=== PATIENT | female | born 1945 | race Caucasian/White ===

== ENCOUNTER → 2017-03-20 | Outpatient (CLI) | payer MEDICARE, OTHER ==
--- NOTE | 2017-03-21 11:47 | MM ---
Reason for exam: screening (asymptomatic). Last mammogram was performed 1 year ago. History: Patient is postmenopausal. Physical Findings: A clinical breast exam by your physician is recommended on an annual basis and results should be correlated with mammographic findings. MG 3D Screening Mammo W/Cad Bilateral CC and MLO view(s) were taken. Prior study comparison: March 19, 2016, bilateral MG 3d screening mammo w/cad. March 17, 2015, bilateral MG screening mammo w CAD. There are scattered fibroglandular densities. There is no discrete abnormality. No significant changes when compared with prior studies. ASSESSMENT: Negative, BI-RAD 1 RECOMMENDATION: Routine screening mammogram of both breasts in 1 year.
== END | disposition home or self-care (01) ==
LOC: RADMAMWWP 07:27
PROVIDERS: ATTEND Internal Medicine
DX: Z12.31 Encounter for screening mammogram for malignant neoplasm of breast (principal)
CPT/HCPCS: 77063; G0202

== ENCOUNTER → 2018-03-28 | Outpatient (CLI) | payer MEDICARE, OTHER ==
--- NOTE | 2018-04-07 11:53 | MM ---
Reason for exam: screening (asymptomatic). Last mammogram was performed 1 year ago. History: Patient is postmenopausal. Physical Findings: A clinical breast exam by your physician is recommended on an annual basis and results should be correlated with mammographic findings. MG 3D Screening Mammo W/Cad Bilateral CC and MLO view(s) were taken. Prior study comparison: March 20, 2017, bilateral MG 3d screening mammo w/cad. March 19, 2016, bilateral MG 3d screening mammo w/cad. The breast tissue is heterogeneously dense. This may lower the sensitivity of mammography. Stable benign calcifications. There is no discrete abnormality. No significant changes when compared with prior studies. ASSESSMENT: Benign, BI-RAD 2 RECOMMENDATION: Routine screening mammogram of both breasts in 1 year.
== END ==
LOC: RADMAMWWP 06:55
PROVIDERS: ATTEND Internal Medicine Geriatric Medicine
DX: Z12.31 Encounter for screening mammogram for malignant neoplasm of breast (principal)
CPT/HCPCS: 77063; 77067

== ENCOUNTER → 2018-05-09 | Day surgery (SDC) | payer MEDICARE, OTHER ==
[2018-05-07 14:24] VITALS: BMI 28.8
[~2018-05-09] MED LIST: LIDOCAINE 1% 20 ML VIAL (10MG/ML) FOR IV START INTRADERMA ONE; PROPOFOL 10 MG/ML 20 ML VIAL IV ONE
[2018-05-09 08:45] VITALS: TEMP 98.5
[2018-05-09] MEDS: LACTATED RINGERS 1,000 ML IV SCH ×2 (08:55→09:23)
--- NOTE | 2018-05-09 09:48 | P.PCN ---
Date of Procedure: 05/09/18 Procedure(s) Performed: BRIEF HISTORY: Patient is a 73-year-old pleasant, white female, scheduled for an elective colonoscopy as a part of surveillance of prior history of colon polyps. Her last endoscopy was in [place] 3 years ago and was noted to have colon polyps. PROCEDURE PERFORMED: Colonoscopy with biopsy and snare polypectomy. PREOPERATIVE DIAGNOSIS: Screen for colon cancer. IV sedation per Anesthesia. PROCEDURE: After informed consent was obtained, the patient, was brought into the endoscopy unit. IV sedation was administered by Anesthesia under continuous monitoring. Digital rectal examination was normal. Initially the Olympus CF- 160 flexible video colonoscope was then inserted in the rectum, gradually advanced into the cecum without any difficulty. Careful examination was performed as the scope was gradually being withdrawn. Ileocecal valve and the appendiceal orifice were visualized and appeared normal. Prep was excellent. The base of the cecum there was a 2-3 mm diminutive polyp that was removed by biopsy. Mucosa of the cecum, ascending colon, transverse colon, descending colon appeared normal. In the sigmoid colon there was a 5 mm sessile polyp removed by snare polypectomy and in the proximal rectum there was another 5 mm sessile polyp removed by snare polypectomy. Rest of the, sigmoid colon, and rectum appeared normal. Moderate sigmoid diverticulosis seen. Retroflexion was performed in the rectum and no lesions were seen. The patient tolerated the procedure well. IMPRESSION: 2-3 mm diminutive cecal polyp status post removal by cold biopsy 5 mm sigmoid colon polyp status post polypectomy 5 mm proximal rectal polyp status post polypectomy Moderate sigmoid diverticulosis RECOMMENDATIONS: Findings of this examination were discussed with the patient well as her family. She was advised to follow with the biopsy results. If the biopsy shows adenoma, she can have a repeat colonoscopy in 3-5 years.
[2018-05-09 09:52] VITALS: RESP 16
[2018-05-09 09:57] VITALS: BP 124/75; PULSE 65
== END ==
LOC: ORWHC2ENDO 08:01
PROVIDERS: ATTEND Internal Medicine Gastroenterology
DX: Z12.11 Encounter for screening for malignant neoplasm of colon (principal); D12.0 Benign neoplasm of cecum; D12.5 Benign neoplasm of sigmoid colon; D12.8 Benign neoplasm of rectum; K57.30 Diverticulosis of large intestine without perforation or abscess without bleeding; Z86.010 Personal history of colon polyps; E78.5 Hyperlipidemia, unspecified; E07.9 Disorder of thyroid, unspecified; Z79.890 Hormone replacement therapy; Z79.899 Other long term (current) drug therapy
CPT/HCPCS: 88305; 45380; 45385; J2704

== ENCOUNTER → 2019-01-09 | Outpatient (CLI) | payer MEDICARE, OTHER ==
--- NOTE | 2019-01-09 13:39 | CT ---
EXAMINATION TYPE: CT angio head neck DATE OF EXAM: 01/09/2019 COMPARISON: None HISTORY: Dizziness and visual disturbance CT DLP: 1407.2 mGycm CONTRAST: Performed with IV Contrast, patient injected with 50 mL of Isovue 370. Combination Contrast CTA cervical carotids and [place] CTA cervical carotids with 3-D recons truction Contrast CTA of the cervical carotids was performed 3-D reconstruction imaging obtained at a separate workstation. Right carotid system: Mild plaque is seen of the right common carotid artery. There is mild plaque a lso noted at the carotid bulb and proximal ICA. No significant diameter reduction. ECA is patent. Right vertebral artery appears unremarkable. Left carotid system: Mild plaque is seen of the left common carotid artery. There is mild plaque als o noted at the carotid bulb and proximal ICA. No significant diameter reduction. ECA is patent. Lef t vertebral artery appears unremarkable. IMPRESSION: 1. No significant diameter reduction to account for the patient's symptoms. CTA [place] with 3-D reconstruction Contrast CTA of the [place] was performed 3-D reconstruction imaging obtained at a separate workstation. Vertebrobasilar system as well as intracranial portions of the internal carotid arteries and their ma latricia tributaries are patent. I do not see evidence for sizable aneurysm or vascular malformation. Pl ease note MRI provides greater sensitivity and specificity. Visualized brain appears grossly unremar kable. IMPRESSION: 1. No significant abnormality.
== END | disposition home or self-care (01) ==
LOC: RADCTMAIN 12:01
PROVIDERS: ATTEND Internal Medicine
DX: R42 Dizziness and giddiness (principal); R53.1 Weakness; R51 Headache
CPT/HCPCS: 70496; 70498; Q9967

== ENCOUNTER → 2019-01-16 | Outpatient (CLI) | payer MEDICARE, OTHER ==
[~2019-01-16] MED LIST changes: -LIDOCAINE 1% 20 ML VIAL (10MG/ML) FOR IV START INTRADERMA ONE; -PROPOFOL 10 MG/ML 20 ML VIAL IV ONE; +REGADENOSON 0.4 MG/5 ML SYRINGE IV ONE
--- NOTE | 2019-01-16 10:45 | NM ---
EXAMINATION TYPE: NM stress lexiscan cardiolite DATE OF EXAM: 01/16/2019 COMPARISON: NONE HISTORY: History of hypertension and prior tobacco use as well as hypercholesterolemia presents with chest pain TECHNIQUE: After the intravenous administration of 10.14 mCi Tc 99m Sestamibi - Cardiolite resting S PECT images acquired 45 minutes post injection. The patient received 0.4mg Lexiscan, 25.5 mCi Tc 99m Sestamibi - Stress images obtained [address] injection FINDINGS: Review of stress and rest SPECT images demonstrates no distinct perfusion abnormality. Gated analysi s shows normal wall motion with an estimated left ventricular ejection fraction of 63 %. IMPRESSION: No scintigraphic evidence for reversible ischemia.
--- NOTE | 2019-01-16 15:27 | EST ---
EXERCISE STRESS AGE: 73 SEX: Female HT: 5'3" WT: 165 pounds PROTOCOL: Lexiscan Cardiolite STAGE: DURATION OF EXERCISE: HEART RATE REST: 62 BLOOD PRESSURE REST: 112/60 MAXIMUM HEART RATE ACHIEVED: 91 MAXIMUM BLOOD PRESSURE: 141/56 85% MPHR: 100% MPHR: METS: INDICATIONS: Chest pain. CLINICAL INFORMATION: STRESS DATA: Heart rate 62, pressure 112/60 mmHg. Baseline EKG showed sinus mechanism. She was given 0.4 mg of Lexiscan over 15 seconds per protocol. Maximum heart rate was 91 beats per minute. Maximum pressure was 141/56. Clinically the patient did not have any symptoms of chest pain or discomfort and the EKG did not show any significant ST or T-wave abnormalities. CONCLUSION: 1. Nondiagnostic electrocardiogram stress testing in response to Lexiscan. 2. Please follow up on the Cardiolite portion on separate report. MMODL / IJN: [id number] /
== END | disposition home or self-care (01) ==
LOC: RADNMMAIN 07:44
PROVIDERS: ATTEND Internal Medicine
DX: R07.9 Chest pain, unspecified (principal)
CPT/HCPCS: 93017; 78452; A9500; J2785

== ENCOUNTER → 2019-04-02 | Outpatient (CLI) | payer MEDICARE, OTHER ==
--- NOTE | 2019-04-03 07:54 | MM ---
Reason for exam: screening (asymptomatic). Last mammogram was performed 1 year ago. History: Patient is postmenopausal. Physical Findings: A clinical breast exam by your physician is recommended on an annual basis and results should be correlated with mammographic findings. MG 3D Screening Mammo W/Cad Bilateral CC and MLO view(s) were taken. Prior study comparison: March 28, 2018, bilateral MG 3d screening mammo w/cad. March 20, 2017, bilateral MG 3d screening mammo w/cad. There are scattered fibroglandular densities. Benign appearing calcifications in the left breast. There is chronic nodularity bilaterally. ASSESSMENT: Benign, BI-RAD 2 RECOMMENDATION: Routine screening mammogram of both breasts in 1 year.
== END | disposition home or self-care (01) ==
LOC: RADMAMWWP 07:20
PROVIDERS: ATTEND Internal Medicine Geriatric Medicine
DX: Z12.31 Encounter for screening mammogram for malignant neoplasm of breast (principal)
CPT/HCPCS: 77063; 77067

== ENCOUNTER → 2020-01-26 | Outpatient (CLI) | payer MEDICARE, OTHER ==
--- NOTE | 2020-01-26 15:13 | CT ---
EXAMINATION TYPE: CT brain wo con DATE OF EXAM: 01/26/2020 COMPARISON: None HISTORY: Unspecified injury of head, initial encounter CT DLP: 1121 mGycm Automated exposure control for dose reduction was used. FINDINGS: There is a calcification in the basal ganglia. Ventricular system compatible with the patient's age. Hyperostosis of the calvarium. No acute fracture. There is no midline shift or mass effect. No acute intracranial hemorrhage. IMPRESSION: NO ACUTE INTRACRANIAL PROCESS. CEREBELLAR TONSILS ARE LOW-LYING IN POSITION CORRELATE FOR CHIARI I MA LFORMATION. FURTHER EVALUATION WITH MRI COULD BE CONSIDERED CLINICALLY WARRANTED.
== END | disposition home or self-care (01) ==
LOC: RADCTMAIN 13:14
PROVIDERS: ATTEND Internal Medicine Geriatric Medicine
DX: G93.89 Other specified disorders of brain (principal)
CPT/HCPCS: 70450

== ENCOUNTER → 2020-01-29 | Outpatient (CLI) | payer MEDICARE, OTHER ==
--- NOTE | 2020-01-29 14:23 | US ---
EXAMINATION TYPE: US carotid duplex BILAT DATE OF EXAM: 01/29/2020 COMPARISON: NONE CLINICAL HISTORY: R42 Dizziness, Unspecified injury of head, initial. EXAM MEASUREMENTS: RIGHT: Peak Systolic Velocity (PSV) cm/sec ----- Right CCA: 79.7 ----- Right ICA: 67.9 ----- Right ECA: 88.7 ICA/CCA ratio: 0.9 RIGHT: End Diastole cm/sec ----- Right CCA: 21.2 ----- Right ICA: 19.3 ----- Right ECA: 10.8 LEFT: Peak Systolic Velocity (PSV) cm/sec ----- Left CCA: 81.4 ----- Left ICA: 98.2 ----- Left ECA: 65.0 ICA/CCA ratio: 1.2 LEFT: End Diastole cm/sec ----- Left CCA: 81.4 ----- Left ICA: 98.2 ----- Left ECA: 65.0 VERTEBRALS (direction of flow): Right Vertebral: Antegrade Left Vertebral: Antegrade Rhythm: Normal Mild plaque with no significant velocity elevations. IMPRESSION: 1. Mild plaque no significant hemodynamic stenosis. Criteria for Assigning % of Stenosis / Diameter reduction (Estimation based on the indirect measurements of the internal carotid artery velocities (ICA PSV). 1. Normal (no stenosis)=ICA PSV < 125 cm/s: ratio < 2.0: ICA EDV<40 cm/s. 2. Less than 50% stenosis=ICA PSV < 125 cm/s: ratio < 2.0: ICA EDV<40 cm/s. 3. 50 to 69% stenosis=ICA PSV of 125 to 230 cm/s: ration 2.0 ? 4.0: ICA EDV 40-100 cm/s. 4. Greater than 70% stenosis to near occlusion= ICA PSV > 230 cm/s: ratio > 4.0: ICA EDV > 100 cm/s. 5. Near occlusion= ICA PSV velocities may be low or undetectable: variable ratio and ICA EDV. 6. Total occlusion=unable to detect flow.
== END | disposition home or self-care (01) ==
LOC: RADECHMAIN 13:41
PROVIDERS: ATTEND Internal Medicine Geriatric Medicine
DX: R42 Dizziness and giddiness (principal)
CPT/HCPCS: 93880

== ENCOUNTER → 2020-02-01 | Outpatient (CLI) | payer MEDICARE, OTHER ==
--- NOTE | 2020-02-15 09:43 | HM ---
HOLTER MONITOR REPORT DATE OF SERVICE: February 01, 2020. REFERRING PHYSICIAN: Dr. Bradshaw. The patient was monitored for 24 hours. The baseline rhythm appeared to be sinus mechanism with a minimum heart rate of 46 beats per minute, max heart rate 115 beats per minute, average heart rate of 70 beats per minute. The ventricular ectopic events were not seen during this 48 hours study. Supraventricular ectopic events seen to be less than 1% of the total beats count and presented as an isolated PACs with couplets. The patient did have symptoms of "head feels heavy" and also another episode of "feeling tired and fatigued" and the symptoms were associated with normal sinus mechanism. No evidence of any significant sinus pause or sinus arrest seen. CONCLUSION: 1. This is a 48 hours Holter monitor. 2. Sinus rhythm as a baseline mechanism. 3. No evidence of any ventricular ectopic events seen. 4. Rare supraventricular ectopic events seen. 5. No evidence of any sinus pause or sinus arrest. 6. No evidence of any tachy or bradyarrhythmia seen. 7. No evidence of any atrial fibrillation or SVT seen. 8. The patient reported symptoms of head feels heavy and also feeling tired and fatigued and both of these symptoms were associated with normal sinus mechanism. MMODL / IJN: [id number] /
== END | disposition home or self-care (01) ==
LOC: RADECHMAIN 11:37
PROVIDERS: ATTEND Internal Medicine Geriatric Medicine
DX: I49.3 Ventricular premature depolarization (principal)
CPT/HCPCS: 93225; 93226

== ENCOUNTER → 2020-03-07 | Outpatient (CLI) | payer MEDICARE, OTHER ==
--- NOTE | 2020-03-07 13:04 | MR ---
EXAMINATION TYPE: MR brain wo/w con DATE OF EXAM: 03/07/2020 COMPARISON: CT brain 01/26/2020 HISTORY: Lost Balance and Had a fall and hit back of head. On and off pressure feeling in back of hea d. CT showed possible abnormality. TECHNIQUE: Multiplanar, multisequence images of the brain and brainstem is performed without and with IV contras t, utilizing 7 mL intravenous Gadavist . FINDINGS: Diffusion weighted images demonstrate no evidence of a recent infarct or other diffusion ab normality. There is no extra-axial fluid collection or significant white matter signal abnormality. The ventricular system and cisternal spaces are normal in size and appearance. The brain volume is age appropriate. Midline structures demonstrate normal morphology, minimal inferior cerebellar tonsillar ectopia noted . The craniocervical junction appears within normal limits. Post contrast images demonstrate no abn ormal enhancement. The dural venous sinuses appear patent. The visualized sinuses are clear and the g lobes are intact. Mastoid air cells on the right show inflammatory change. Calcifications present. IMPRESSION: Correlate for mastoiditis.
== END | disposition home or self-care (01) ==
LOC: RADMRIMAIN 10:51
PROVIDERS: ATTEND Nurse Practitioner Gerontology
DX: R93.0 Abnormal findings on diagnostic imaging of skull and head, not elsewhere classified (principal)
CPT/HCPCS: 70553; A9585

== ENCOUNTER → 2020-05-31 | Outpatient (CLI) | payer MEDICARE, OTHER ==
--- NOTE | 2020-06-02 11:26 | MM ---
Reason for exam: screening (asymptomatic). Last mammogram was performed 1 year and 2 months ago. History: Patient is postmenopausal. Physical Findings: A clinical breast exam by your physician is recommended on an annual basis and results should be correlated with mammographic findings. MG 3D Screening Mammo W/Cad Bilateral CC and MLO view(s) were taken. Prior study comparison: April 02, 2019, bilateral MG 3d screening mammo w/cad. March 28, 2018, bilateral MG 3d screening mammo w/cad. There are scattered fibroglandular densities. Finding #1: There is a typically benign circumscribed round mass in the upper outer quadrant of the right breast. Finding #2: There are typically benign calcifications in the left breast. No significant changes in finding since April 02, 2019 and March 28, 2018. ASSESSMENT: Benign, BI-RAD 2 RECOMMENDATION: Routine screening mammogram of both breasts in 1 year.
--- NOTE | 2020-06-02 20:32 | BD ---
EXAMINATION TYPE: Axial Bone Density DATE OF EXAM: 05/31/2020 COMPARISON: NONE CLINICAL HISTORY: Height: 5 FT 2 IN Weight: 160 FRAX RISK QUESTIONS: Alcohol (3 or more units per day): NO Family History (Parent hip fracture): YES Glucocorticoids (More than 3mos): NO (Ex: prednisone, prednisolone, methylprednisolone, dexamethasone, and hydrocortisone). History of Fracture in Adulthood: NO Secondary Osteoporosis: 1. Type 1 Diabetes: NO 2. Hyperthyroidism: NO 3. Menopause before 45: NO 4. Malnutrition: NO 5. Chronic liver disease: NO Rheumatoid Arthritis: NO Current Tobacco Use: NO RISK FACTORS HISTORY OF: Family History of Osteoporosis: YES Active: YES Postmenopausal woman: UNSURE Lost more than 2 inches in height since high school: UNSURE MEDICATIONS: Thyroid Medications: YES Which medication: LEVOTHYROXINE How Long: OVER 30 YEARS Additional Medications: LEVOTHYROXINE, SIMVASTATIN, GABAPENTIN, BLOOD PRESSURE MEDS, Additional History: EXAM MEASUREMENTS: Bone mineral densitometry was performed using the [employer] System. Bone mineral density as measured about the Lumbar spine is: ----- L1-L4(G/cm2): 1.154 T Score Values are as follows: ----- L2: -0.7 ----- L3: -0.1 ----- L4: 0.2 ----- L1-L4: -0.2 BASELINE Bone mineral density about the R hip (g/cm2): 0.901 Bone mineral density about the L hip (g/cm2): 0.943 T Score values are as follows: -----R Neck: -1.0 -----L Neck: -0.7 -----R Total: -0.1 -----L Total: 0.4 BASELINE IMPRESSION: Normal (Values between +1 and -1 indicate normal bone mass). Consider repeating this study in 5 year s or sooner if there is some new clinical indication. NOTE: T-SCORE=SD OF THE YOUNG ADULT MEAN.
== END | disposition home or self-care (01) ==
LOC: RADMAMWWP 14:23
PROVIDERS: ATTEND Internal Medicine Geriatric Medicine
DX: Z12.31 Encounter for screening mammogram for malignant neoplasm of breast (principal); M81.0 Age-related osteoporosis without current pathological fracture
CPT/HCPCS: 77063; 77067; 77080

== ENCOUNTER → 2020-11-14 | Outpatient (CLI) | payer MEDICARE, OTHER ==
--- NOTE | 2020-11-14 13:24 | XR ---
EXAMINATION TYPE: XR cervical spine comp DATE OF EXAM: 11/14/2020 COMPARISON: None HISTORY: 75-year-old female bilateral arm numbness TECHNIQUE: 5 views FINDINGS: No predental space widening or prevertebral soft tissue swelling. Moderate disc/endplate degenerative change at C5-C7 levels. Trace grade 1 anterolisthesis at C4-C5. Facet and uncovertebral joint arthro jovanni mid to lower cervical spine. On the right, changes resulting mild to moderate bony neuroforamin al narrowing at C5-C6. On the left, changes resulting in moderate bony neuroforaminal narrowing C7-T1 and mild at C6-C7. Limited odontoid view shows no gross anomaly. IMPRESSION: Moderate spondylotic changes mid to lower cervical spine. Degenerative grade 1 anterolisthesis C4-C5. Variable mild to moderate bony neural foraminal stenoses as outlined above.
== END | disposition home or self-care (01) ==
LOC: RADXRMAIN 12:54
PROVIDERS: ATTEND Internal Medicine Geriatric Medicine
DX: M48.02 Spinal stenosis, cervical region (principal); M43.12 Spondylolisthesis, cervical region; M99.71 Connective tissue and disc stenosis of intervertebral foramina of cervical region
CPT/HCPCS: 72050

== ENCOUNTER → 2020-12-05 | Outpatient (CLI) | payer MEDICARE, OTHER ==
--- NOTE | 2020-12-05 12:12 | MR ---
EXAMINATION TYPE: MR cervical spine wo/w con DATE OF EXAM: 12/05/2020 COMPARISON: HISTORY: Numbness in arms and weakness in legs TECHNIQUE: Multiplanar, multisequence images of the cervical spine were acquired utilizing 7.5 mL intravenous Ga davist gadolinium contrast. C2-C3: No evidence for degenerative disc disease. No disc bulge/herniation or protrusion. No Canal stenosis. Foramina are patent bilaterally. C3-C4: No evidence for degenerative disc disease. No disc bulge/herniation or protrusion. No Canal stenosis. Foramina are patent bilaterally. C4-C5: Posterior extension endplate disc complex causes mild anterior mass effect thecal sac. There i s some mild left-sided foraminal encroachment due to vertebral joint hypertrophy. C5-C6: Posterior extension endplate disc complex causes mild anterior mass effect thecal sac. There i s bilateral foraminal encroachment due to uncovertebral joint hypertrophy. C6-C7: Posterior extension endplate disc complex causes mild anterior mass effect on the thecal sac. There is left-sided foraminal encroachment due to uncovertebral joint hypertrophy, facet arthropathy change. C7-T1: No evidence for degenerative disc disease. No disc bulge/herniation or protrusion. No Canal stenosis. Foramina are patent bilaterally. Some facet arthropathy changes present greater on the lef t. Cervical segments are intact. There is anterolisthesis grade 1 C7-T1. Cervical spinal cord is of no rmal signal. Craniovertebral junction relationships are within normal limits. There is no significa nt spinal stenosis. There is a spinal curvature, possible thoracic scoliosis. There is multilevel spo ndylosis. There are endplate marrow signal changes, loss of disc height signal is present at C5-6, C6 -7. No abnormal enhancement following contrast administration. IMPRESSION: Multilevel degenerative disc disease, foraminal encroachment.
== END | disposition home or self-care (01) ==
LOC: RADMRIMAIN 09:22
PROVIDERS: ATTEND Internal Medicine Geriatric Medicine
DX: M47.812 Spondylosis without myelopathy or radiculopathy, cervical region (principal)
CPT/HCPCS: 72156; A9585

== ENCOUNTER → 2021-06-14 | Outpatient (CLI) | payer MEDICARE, OTHER ==
--- NOTE | 2021-06-15 11:09 | MM ---
Reason for exam: screening (asymptomatic). Last mammogram was performed 1 year ago. History: Patient is postmenopausal. Physical Findings: A clinical breast exam by your physician is recommended on an annual basis and results should be correlated with mammographic findings. MG 3D Screening Mammo W/Cad Bilateral CC and MLO view(s) were taken. XCCL view(s) were taken of the left breast. Prior study comparison: May 31, 2020, bilateral MG 3d screening mammo w/cad. April 02, 2019, bilateral MG 3d screening mammo w/cad. The breast tissue is heterogeneously dense. This may lower the sensitivity of mammography. There is no discrete abnormality. No significant changes when compared with prior studies. ASSESSMENT: Negative, BI-RAD 1 RECOMMENDATION: Routine screening mammogram of both breasts in 1 year.
== END | disposition home or self-care (01) ==
LOC: RADMAMWWP 07:00
PROVIDERS: ATTEND Internal Medicine Geriatric Medicine
DX: Z12.31 Encounter for screening mammogram for malignant neoplasm of breast (principal); Z78.0 Asymptomatic menopausal state
CPT/HCPCS: 77063; 77067

== ENCOUNTER 2021-08-02 09:09 | Day surgery (SDC) | payer MEDICARE, OTHER ==
[2021-07-31 14:08] VITALS: BMI 29.2
[~2021-08-02 09:09] MED LIST changes: +LACTATED RINGERS 1,000 ML IV SCH; +LIDOCAINE 1% (10MG/ML) FOR IV START INTRADERMA PRN; -REGADENOSON 0.4 MG/5 ML SYRINGE IV ONE
[2021-08-02 09:37] VITALS: PULSE 79; TEMP 98.3
[2021-08-02] MEDS ORDERED: PROPOFOL 10 MG/ML 20 ML VIAL IV ONE (10:11)
--- NOTE | 2021-08-02 10:31 | P.PCN ---
Date of Procedure: 08/02/21 Procedure(s) Performed: BRIEF HISTORY: Patient is a 76-year-old pleasant female scheduled for an elective colonoscopy as a part of value should prior history of colon polyps. Last colonoscopy was 3 years ago. PROCEDURE PERFORMED: Colonoscopy with biopsy. PREOPERATIVE DIAGNOSIS: History of colon polyps. IV sedation per Anesthesia. PROCEDURE: After informed consent was obtained, the patient, was brought into the endoscopy unit. IV sedation was administered by Anesthesia under continuous monitoring. Digital rectal examination was normal. Initially the Olympus CF-160 flexible video colonoscope was then inserted in the rectum, gradually advanced into the cecum without any difficulty. Careful examination was performed as the scope was gradually being withdrawn. Ileocecal valve and the appendiceal orifice were visualized and appeared normal. Prep was excellent. Mucosa of the cecum, ascending colon, transverse colon, appeared normal. In the descending colon there was a 5 mm sessile polyp removed by cold biopsy. The sigmoid colon there was a 3 mm polyp that was removed by cold biopsy. Rest of the descending colon, sigmoid colon, and rectum appeared normal. Moderate sigmoid diverticulosis seen. Retroflexion was performed in the rectum and small internal hemorrhoids were seen. The patient tolerated the procedure well. IMPRESSION: 5 mm descending colon polyp status post cold biopsy 3 mm; polyp status post biopsy Scattered sigmoid diverticulosis Small internal hemorrhoids RECOMMENDATIONS: Findings of this examination were discussed with the patient well as her family. She was advised to follow with the biopsy results. If the biopsy results adenoma she can have a repeat colonoscopy in 5 years.
[2021-08-02 10:39] VITALS: BP 114/62; RESP 12
== END 2021-08-02 11:07 | disposition home or self-care (01) ==
LOC: ORWHC2ENDO 09:09
PROVIDERS: ATTEND Internal Medicine Gastroenterology
DX: Z86.010 Personal history of colon polyps (principal)
CPT/HCPCS: 45380; 88305; J2704

== ENCOUNTER → 2022-04-05 | Outpatient (CLI) | payer MEDICARE, OTHER ==
--- NOTE | 2022-04-05 13:43 | US ---
EXAMINATION TYPE: US transvaginal DATE OF EXAM: 04/05/2022 COMPARISON: NONE CLINICAL HISTORY: R10.2 PELVIC PAIN. Pelvic pain. Hx hysterectomy, patient states she has both ovarie s. . TECHNIQUE: Transabdominal (TA). Transabdominal sonographic images of the pelvis were acquired. Date of LMP: Unknown. EXAM MEASUREMENTS: Right Ovary: Obscured Left Ovary: Not seen with certainty cm 1. Uterus: Surgically absent. 2. Endometrium: Surgically absent. 3. Right Ovary: Obscured. 4. Left Ovary: Not seen with certainty. 5. Bilateral Adnexa: Very limited due to bowel. Area of mixed echogenicity seen in left adnexa, difficult to determine if this is ovarian tissue: 1.6 x 1.2 x 0.6 cm. Anechoic area seen in right adnexa, possible free fluid: 0.6 x 1.1 x 0.7 cm. 6. Posterior cul-de-sac: Appears wnl IMPRESSION: 1. Postoperative changes of hysterectomy. Vaginal cuff is unremarkable. 2. Probable left ovarian tissue. Correlate with surgical history. 3. Small amount of free fluid adjacent to the right adnexa.
== END | disposition home or self-care (01) ==
LOC: RADUSWWP 12:01
PROVIDERS: ATTEND Internal Medicine Geriatric Medicine
DX: R10.2 Pelvic and perineal pain (principal)
CPT/HCPCS: 76830

== ENCOUNTER → 2022-06-15 | Outpatient (CLI) | payer MEDICARE, OTHER ==
--- NOTE | 2022-06-18 20:20 | MM ---
Reason for Exam: Screening (asymptomatic). Last screening mammogram was performed 12 month(s) ago. Patient History: Menarche at age 13. First Full-Term at age 24. Hysterectomy at age 41. Postmenopausal. Risk Values: Lisa 5 year model risk: 1.6%. NCI Lifetime model risk: 3.2%. Prior Study Comparison: 04/02/2019 Bilateral Screening Mammogram, [facility]. 05/31/2020 Bilateral Screening Mammogram, [facility]. 06/14/2021 Bilateral Screening Mammogram, [facility]. Tissue Density: There are scattered fibroglandular densities. Findings: Analyzed By CAD. Chronic nodularity on the right. There is no suspicious group of microcalcifications or new suspicious mass in either breast. Overall Assessment: Benign, BI-RAD 2 Management: Screening Mammogram of both breasts in 1 year. 1. Patient should continue monthly self breast exams. 2. A clinical breast exam by your physician is recommended on an annual basis. 3. This exam should not preclude additional follow-up of suspicious palpable abnormalities. Electronically signed and approved by: Cabrera Landon M.D. Radiologist
== END | disposition home or self-care (01) ==
LOC: RADMAMWWP 07:22
PROVIDERS: ATTEND Internal Medicine Geriatric Medicine
DX: Z12.31 Encounter for screening mammogram for malignant neoplasm of breast (principal); Z78.0 Asymptomatic menopausal state
CPT/HCPCS: 77063; 77067

== ENCOUNTER → 2023-06-18 | Outpatient (CLI) | payer MEDICARE, OTHER ==
--- NOTE | 2023-06-18 13:34 | BD ---
EXAMINATION TYPE: Axial Bone Density DATE OF EXAM: 06/18/2023 CLINICAL HISTORY: 78 years old Female. ICD-10 CODE: M81.0 AGE-RELATED OSTEOPOROSIS W/ Height: 62.2 Weight: 163 FRAX RISK QUESTIONS: Family History (Parent hip fracture): yes RISK FACTORS HISTORY OF: Family History of Osteoporosis: yes Postmenopausal woman: 53 Lost more than 2 inches in height since high school: yes Hyperparathyroidism: no Adrenal Insufficiency: no MEDICATIONS: Thyroid Medications: yes over 40 yrs, synthroid product Additional Medications: statin for cholesterol, gabapentin, bp meds, Additional History: neurological, hypertension, thyroid, renoids in her feet ,psoriasis, arthritis EXAM MEASUREMENTS: Bone mineral densitometry was performed using the [employer] System. Bone mineral density as measured about the Lumbar spine is: ----- L1-L4(G/cm2): 1.064 T Score Values are as follows: ----- L1: -1.4 ----- L2: -1.3 ----- L3: -0.7 ----- L4: -0.7 ----- L1-L4: -1.0 Z Score Values are as follows: ----- L1: 0.0 ----- L2: 0.2 ----- L3: 0.8 ----- L4: 0.8 ----- L1-L4: 0.5 Bone mineral density has: Decreased -7.8% since study of: 05.31.2020 Bone mineral density about the R hip (g/cm2): 0.973 Bone mineral density about the L hip (g/cm2): 1.067 T Score values are as follows: -----R Neck: -1.1 -----L Neck: -0.7 -----R Total: -0.3 -----L Total: 0.5 Z Score values are as follows: -----R Neck: 0.7 -----L Neck: 1.1 -----R Total: 1.4 -----L Total: 2.1 Bone mineral density has: Decreased -0.2% since study of: 05.31.2020 FRAX%s: The graph provided illustrates a 17.0% chance for a major osteoporotic fx and a 7.8% chance f or the hips probability for fx in 10 years time. IMPRESSION: Osteopenia (T Score between -2.5 and -1). There is slightly increased risk of fracture and the patient may be considered for treatment. Re-Screen 2-5 years. NOTE: T-SCORE=SD OF THE YOUNG ADULT MEAN.
--- NOTE | 2023-06-19 07:33 | MM ---
Reason for Exam: Screening (asymptomatic). Last screening mammogram was performed 12 month(s) ago. Patient History: Menarche at age 13. First Full-Term at age 24. Hysterectomy at age 41. Postmenopausal. Risk Values: Lisa 5 year model risk: 1.6%. NCI Lifetime model risk: 3.0%. Prior Study Comparison: 05/31/2020 Bilateral Screening Mammogram, [facility]. 06/14/2021 Bilateral Screening Mammogram, [facility]. 06/15/2022 Bilateral MG 3D screening mammo w/cad, [facility]. Tissue Density: There are scattered fibroglandular densities. Findings: Analyzed By CAD. There is no suspicious group of microcalcifications or new suspicious mass in either breast. Stable chronic nodularity within both breasts. Benign calcifications within the left breast. Overall Assessment: Benign, BI-RAD 2 Management: Screening Mammogram of both breasts in 1 year. A clinical breast exam by your physician is recommended on an annual basis and results should be correlated with mammographic findings. Note on Lisa scores and lifetime risk: 1. A Lisa score greater than 3% is considered moderate risk. If this is the case, consider specialist referral to assess eligibility for a risk reducing agent. If overall lifetime risk for the development of breast cancer is 20% or higher, the patient may qualify for future screening with alternating mammogram and breast MRI. Electronically signed and approved by: Mario Benson D.O.
== END | disposition home or self-care (01) ==
LOC: RADMAMWWP 08:10
PROVIDERS: ATTEND Internal Medicine Geriatric Medicine
DX: Z12.31 Encounter for screening mammogram for malignant neoplasm of breast (principal); M81.0 Age-related osteoporosis without current pathological fracture; M85.89 Other specified disorders of bone density and structure, multiple sites; Z78.0 Asymptomatic menopausal state
CPT/HCPCS: 77063; 77067; 77080

== ENCOUNTER 2023-07-14 02:54 | Emergency (ER) | payer MEDICARE, OTHER ==
[2023-07-14 03:20] VITALS: PULSE 67; RESP 18; TEMP 98.4
--- NOTE | 2023-07-14 03:29 | ED ---
General Adult HPI - General Chief complaint: Shortness of Breath Stated complaint: Sob Time Seen by Provider: 07/14/23 03:05 Source: patient Mode of arrival: ambulatory Limitations: no limitations - History of Present Illness Initial comments: 78-year-old female presents the ER today with a multitude of complaints. Patient reports that earlier in the week she had some pain in her flank and some dysuria she was seen in urgent care and prescribed some Pyridium though she was told she did not have a urinary tract infection. Patient reports that her sy mptoms improved however today they returned and she also felt some epigastric pressure or discomfort. Patient was concerned she might have kidney failure so she came to the ER. Upon arrival patient has pain in the epigastrium which makes it uncomfortable to breathe, no other significant complaints. - Related Data Home Medications Medication Instructions Recorded Confirmed Simvastatin [Zocor] 40 mg PO HS 05/07/18 07/31/21 Gabapentin 300 mg PO DAILY 07/31/21 07/31/21 Levothyroxine Sodium [Synthroid] 75 mcg PO DAILY 07/31/21 07/31/21 amLODIPine BESYLATE [Norvasc] 2.5 mg PO DAILY 07/31/21 07/31/21 Allergies Allergy/AdvReac Type Severity Reaction Status Date / Time No Known Allergies Allergy Verified 07/14/23 02:58 Review of Systems ROS Statement: Those systems with pertinent positive or pertinent negative responses have been documented in the HPI. ROS Other: All systems not noted in ROS Statement are negative. Past Medical History Past Medical History: Hyperlipidemia, Hypertension, Thyroid Disorder Additional Past Medical History / Comment(s): Raynaud's History of Any Multi-Drug Resistant Organisms: None Reported Past Surgical History: Hysterectomy Additional Past Surgical History / Comment(s): COLONOSCOPY Past Anesthesia/Blood Transfusion Reactions: No Reported Reaction Past Psychological History: No Psychological Hx Reported Smoking Status: Former smoker Past Alcohol Use History: None Reported Past Drug Use History: None Reported - Past Family History Mother Family Medical History: Cancer Additional Family Medical History / Comment(s): Skin Father Additional Family Medical History / Comment(s): Stroke General Exam Limitations: no limitations General appearance: alert, in no apparent distress Head exam: Present: atraumatic Eye exam: Present: normal appearance ENT exam: Present: normal exam Neck exam: Present: normal inspection Respiratory exam: Present: normal lung sounds bilaterally. Absent: respiratory distress Cardiovascular Exam: Present: regular rate, normal rhythm GI/Abdominal exam: Present: soft, tenderness. Absent: distended, guarding, rebound Rectal exam: Present: deferred Extremities exam: Present: normal inspection Back exam: Present: normal inspection Neurological exam: Present: alert, oriented X3 Psychiatric exam: Present: normal affect, normal mood Skin exam: Present: warm, dry Course Vital Signs 07/14/23 07/14/23 07/14/23 02:58 04:31 05:00 Temperature 98.4 F Pulse Rate 67 Respiratory 18 18 Rate Blood Pressure 146/85 128/67 O2 Sat by Pulse 98 95 96 Oximetry 07/14/23 07/14/23 06:00 08:15 Temperature Pulse Rate 67 Respiratory 18 18 Rate Blood Pressure 124/74 126/80 O2 Sat by Pulse 94 L 96 Oximetry EKG Findings - EKG Comments: EKG Findings:: EKG interpreted by me, EKG obtained at 3:06 AM, rate is 60 rhythm is sinus with leftward axis, normal intervals [place] 205 QRS 80 QTc [address] elevations or depressions no evidence of acute ischemia or infarction. Medical Decision Making - Medical Decision Making Was pt. sent in by a medical professional or institution (, PA, [employer]IRS[employer]ER, urgent care, hospital, or snf...) When possible be specific @ -No Did you speak to anyone other than the patient for history (EMS, parent, family, police, friend...)? What history was obtained from this source @ - Did you review nursing and triage notes (agree or disagree)? Why? @ -I reviewed and agree with nursing and triage notes Were old charts reviewed (outside hosp., previous admission, EMS record, old EKG, old radiological studies, urgent care reports/EKG's, snf records)? Report findings @ -Previous labs ordered Differential Diagnosis (chest pain, altered mental status, abdominal pain women, abdominal pain men, vaginal bleeding, weakness, fever, dyspnea, syncope, headache, dizziness, GI bleed, back pain, seizure, CVA, palpatations, mental health)? @ -Differential Dyspnea: Coronary syndrome, arrhythmia, tamponade, asthma, COPD, pulmonary embolism, pneumonia, pneumothorax, pulmonary effusion, anaphylaxis, diabetic ketoacidosis, flailed chest, pulmonary contusion, diaphragmatic rupture, anemia, neuromuscular, this is not meant to be an all-inclusive list. EKG interpreted by me (3pts min.). @ -As above X-rays interpreted by me (1pt min.). @ -No acute process CT interpreted by me (1pt min.). @ -No free air, no masses, no hydronephrosis U/S interpreted by me (1pt. min.). @ -None done What testing was considered but not performed or refused? (CT, X-rays, U/S, labs)? Why? @ -None What meds were considered but not given or refused? Why? @ -None Did you discuss the management of the patient with other professionals (professionals i.e. DrMohinder, PA, [employer]ER, lab, RT, psych nurse, geriatric social worker, director business development, teacher, traffic division commanding officer, director case)? Give summary @ -No Was smoking cessation discussed for >3mins.? @ -No Was critical care preformed (if so, how long)? @ -No Were there social determinants of health that impacted care today? How? ( Homelessness, low income, unemployed, alcoholism, drug addiction, transportation, low edu. Level, literacy, decrease access to med. care, fci, rehab)? @ -No Was there de-escalation of care discussed even if they declined (Discuss DNR or withdrawal of care, Hospice)? DNR status @ -No What co-morbidities impacted this encounter? (DM, HTN, Smoking, COPD, CAD, Cancer, CVA, ARF, Chemo, Hep., AIDS, mental health diagnosis, sleep apnea, morbid obesity)? @ -None Was patient admitted / discharged? Hospital course, mention meds given and route, prescriptions, significant lab abnormalities, going to OR and other pertinent info. @ -Discharge The patient was seen and evaluated. History is obtained from patient. Patient with very vague complaints, apparently having some dysuria throughout the week some Pyridium had temporary improvement and now had some dysuria again this morning. Some flank pain. The patient reports that upon experiencing any symptoms again she began having some shortness of breath feeling very worried. She had some discomfort in her epigastrium. Upon arrival she is well-appearing hemodynamically stable. Initial labs and chest x-ray were unremarkable, patient very anxious about possibility of something acute in her abdomen therefore computed tomography scan was obtained results with no acute findings. Results were discussed with patient. Patient specifically asked if there was any evidence of cancer, and she was assured that there is no obvious masses or signs of cancer patient began smiling reported feeling much better and states she like to be discharged home. Undiagnosed new problem with uncertain prognosis? @ -No Drug Therapy requiring intensive monitoring for toxicity (Heparin, Nitro, Insulin, Cardizem)? @ -No Were any procedures done? @ -No Diagnosis/symptom? @ -Dysuria Acute, or Chronic, or Acute on Chronic? @ -default Uncomplicated (without systemic symptoms) or Complicated (systemic symptoms)? @ -default Side effects of treatment? @ -No Exacerbation, Progression, or Severe Exacerbation? @ -No Poses a threat to life or bodily function? How? (Chest pain, [place], [place], pneumonia, PE, COPD, DKA, ARF, appy, cholecystitis, CVA, Diverticulitis, Homicidal, Suicidal, threat to staff... and all critical care pts) @ -No - Lab Data Result diagrams: 07/14/23 03:55 07/14/23 03:55 Lab Results 07/14/23 07/14/23 07/14/23 Range/Units 03:55 03:55 03:55 WBC 4.5 (3.8-10.6) k/uL RBC 4.18 (3.80-5.40) m/uL Hgb 14.2 (11.4-16.0) gm/dL Hct 39.8 (34.0-46.0) % MCV 95.1 (80.0-100.0) fL MCH 34.0 (25.0-35.0) pg MCHC 35.7 (31.0-37.0) g/dL RDW 12.1 (11.5-15.5) % Plt Count 226 (150-450) k/uL MPV 8.1 Neutrophils % 55 % Lymphocytes % 32 % Monocytes % 6 % Eosinophils % 4 % Basophils % 1 % Neutrophils # 2.4 (1.3-7.7) k/uL Lymphocytes # 1.4 (1.0-4.8) k/uL Monocytes # 0.3 (0-1.0) k/uL Eosinophils # 0.2 (0-0.7) k/uL Basophils # 0.0 (0-0.2) k/uL PT 10.0 (10.0-12.5) sec INR 0.9 (<1.2) APTT 34.0 H (22.0-30.0) sec Sodium 137 (137-145) mmol/L Potassium 4.3 (3.5-5.1) mmol/L Chloride 108 H (98-107) mmol/L Carbon Dioxide 20 L (22-30) mmol/L Anion Gap 9 mmol/L BUN 16 (7-17) mg/dL Creatinine 0.78 (0.52-1.04) mg/dL Est GFR (CKD-EPI)AfAm 85 (>60 ml/min/1.73 sqM) Est GFR (CKD-EPI)NonAf 74 (>60 ml/min/1.73 sqM) Glucose 119 H (74-99) mg/dL Calcium 9.5 (8.4-10.2) mg/dL Magnesium 2.1 (1.6-2.3) mg/dL Total Bilirubin 0.8 (0.2-1.3) mg/dL AST 24 (14-36) U/L ALT 23 (4-34) U/L Alkaline Phosphatase 74 (38-126) U/L Troponin I (0.000-0.034) ng/mL Total Protein 6.1 L (6.3-8.2) g/dL Albumin 3.7 (3.5-5.0) g/dL Lipase 200 (23-300) U/L Urine Color Urine Appearance (Clear) Urine pH (5.0-8.0) Ur Specific Douglas (1.001-1.035) Urine Protein (Negative) Urine Glucose (UA) (Negative) Urine Ketones (Negative) Urine Blood (Negative) Urine Nitrite (Negative) Urine Bilirubin (Negative) Urine Urobilinogen (<2.0) mg/dL Ur Leukocyte Esterase (Negative) Urine RBC (0-5) /hpf Urine WBC (0-5) /hpf Ur Squamous Epith Cells (0-4) /hpf Urine Bacteria (None) /hpf 07/14/23 07/14/23 Range/Units 03:55 03:55 WBC (3.8-10.6) k/uL RBC (3.80-5.40) m/uL Hgb (11.4-16.0) gm/dL Hct (34.0-46.0) % MCV (80.0-100.0) fL MCH (25.0-35.0) pg MCHC (31.0-37.0) g/dL RDW (11.5-15.5) % Plt Count (150-450) k/uL MPV Neutrophils % % Lymphocytes % % Monocytes % % Eosinophils % % Basophils % % Neutrophils # (1.3-7.7) k/uL Lymphocytes # (1.0-4.8) k/uL Monocytes # (0-1.0) k/uL Eosinophils # (0-0.7) k/uL Basophils # (0-0.2) k/uL PT (10.0-12.5) sec INR (<1.2) APTT (22.0-30.0) sec Sodium (137-145) mmol/L Potassium (3.5-5.1) mmol/L Chloride (98-107) mmol/L Carbon Dioxide (22-30) mmol/L Anion Gap mmol/L BUN (7-17) mg/dL Creatinine (0.52-1.04) mg/dL Est GFR (CKD-EPI)AfAm (>60 ml/min/1.73 sqM) Est GFR (CKD-EPI)NonAf (>60 ml/min/1.73 sqM) Glucose (74-99) mg/dL Calcium (8.4-10.2) mg/dL Magnesium (1.6-2.3) mg/dL Total Bilirubin (0.2-1.3) mg/dL AST (14-36) U/L ALT (4-34) U/L Alkaline Phosphatase (38-126) U/L Troponin I <0.012 (0.000-0.034) ng/mL Total Protein (6.3-8.2) g/dL Albumin (3.5-5.0) g/dL Lipase (23-300) U/L Urine Color Yellow Urine Appearance Clear (Clear) Urine pH 6.0 (5.0-8.0) Ur Specific Douglas 1.005 (1.001-1.035) Urine Protein Negative (Negative) Urine Glucose (UA) Negative (Negative) Urine Ketones Negative (Negative) Urine Blood Negative (Negative) Urine Nitrite Negative (Negative) Urine Bilirubin Negative (Negative) Urine Urobilinogen <2.0 (<2.0) mg/dL Ur Leukocyte Esterase Trace H (Negative) Urine RBC <1 (0-5) /hpf Urine WBC 1 (0-5) /hpf Ur Squamous Epith Cells <1 (0-4) /hpf Urine Bacteria Rare H (None) /hpf Disposition Clinical Impression: Flank pain Disposition: HOME SELF-CARE Condition: Stable Is patient prescribed a controlled substance at d/c from ED?: No Referrals: Carlos Bradshaw MD [Primary Care Provider] - 1-2 days
[2023-07-14] MEDS ORDERED: SODIUM CHLORIDE 0.9% 500 ML 500 ML IV STA (03:52)
[2023-07-14 04:18] LABS: Basophils % (A) 1 %; Eosinophils # (A) 0.2 k/uL (0-0.7); Eosinophils % (A) 4 %; HCT 39.8 % (34.0-46.0); HGB 14.2 gm/dL (11.4-16.0); Lymphocytes # (A) 1.4 k/uL (1.0-4.8); Lymphocytes % (A) 32 %; MCHC 35.7 g/dL (31.0-37.0); MCV 95.1 fL (80.0-100.0); Mean Platelet Volume 8.1; Monocytes # (A) 0.3 k/uL (0-1.0); Monocytes % (A) 6 %; Neutrophils # (A) 2.4 k/uL (1.3-7.7); Neutrophils % (A) 55 %; Platelet Count 226 k/uL (150-450); RBC 4.18 m/uL (3.80-5.40); RDW 12.1 % (11.5-15.5); WBC 4.5 k/uL (3.8-10.6)
[2023-07-14 04:22] LABS: Appearance,Urine Clear (Clear); Bacteria,Urine Rare /hpf; Bilirubin,Urine Negative (Negative); Blood,Urine Negative (Negative); Color,Urine Yellow; Glucose,Urine (UA) Negative (Negative); Ketones,Urine Negative (Negative); Leukocyte Esterase,Urine Trace (Negative); Nitrite,Urine Negative (Negative); Protein,Urine Negative (Negative); RBC,Urine <1 /hpf (0-5); Specific Gravity,Urine 1.005 (1.001-1.035); Squamous Epithelial Cell,Urine <1 /hpf (0-4); Urobilinogen,Urine <2.0 mg/dL (<2.0); WBC,Urine 1 /hpf (0-5)
[2023-07-14 04:27] LABS: ALT 23 U/L (4-34); AST 24 U/L (14-36); African American GFR (CKD) 85 (>60 ml/min/1.73 sqM); Albumin 3.7 g/dL (3.5-5.0); Alkaline Phosphatase 74 U/L (38-126); Anion Gap 9 mmol/L; Blood Urea Nitrogen 16 mg/dL (7-17); Calcium 9.5 mg/dL (8.4-10.2); Carbon Dioxide 20 mmol/L (22-30); Chloride 108 mmol/L (98-107); Glucose 119 mg/dL (74-99); Lipase 200 U/L (23-300); Magnesium 2.1 mg/dL (1.6-2.3); Non-African American GFR(CKD) 74 (>60 ml/min/1.73 sqM); Potassium 4.3 mmol/L (3.5-5.1); Sodium 137 mmol/L (137-145); Total Bilirubin 0.8 mg/dL (0.2-1.3); Total Protein 6.1 g/dL (6.3-8.2)
[2023-07-14 04:29] LABS: INR 0.9 (<1.2)
--- NOTE | 2023-07-14 05:37 | XR ---
EXAM: XR Chest, 2 Views CLINICAL HISTORY: ITS.REASON XR Reason: Chest Pain TECHNIQUE: Frontal and lateral views of the chest. COMPARISON: No relevant prior studies available. FINDINGS: Lungs: No consolidation. Pleural space: Unremarkable. No pneumothorax. Heart: Mild cardiomegaly. Mediastinum: Normal mediastinal contour. Bones/joints: No acute fracture. IMPRESSION: No radiographic evidence of acute cardiopulmonary process.
--- NOTE | 2023-07-14 07:36 | CT ---
EXAM: CT Abdomen and Pelvis With Intravenous Contrast CLINICAL HISTORY: ITS.REASON CT Reason: epigastric pain TECHNIQUE: Axial computed tomography images of the abdomen and pelvis with intravenous contrast. CTDI is 20.37 mGy and DLP is 972.4 mGy-cm. This CT exam was performed using one or more of the following dose reduction techniques: automated exposure control, adjustment of the mA and/or kV according to patient size, and/or use of iterative reconstruction technique. COMPARISON: No relevant prior studies available. FINDINGS: Lung bases: There is some mild bibasilar atelectasis. ABDOMEN: Liver: Low-attenuation liver. Gallbladder and bile ducts: Unremarkable. No calcified stones. No ductal dilation. Pancreas: Unremarkable. No mass. No ductal dilation. Spleen: 1.5 cm low-attenuation lesion in the medial inferior spleen, of doubtful clinical significance. Adrenals: Unremarkable. No mass. Kidneys and ureters: There are some small renal cysts. 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 Subcentimeter focus of increased attenuation upper pole right kidney, too small to characterize. Small nonobstructing renal stones. Stomach and bowel: Colonic diverticulosis. No obstruction. No mucosal thickening. PELVIS: Appendix: No findings to suggest acute appendicitis. Bladder: Unremarkable. No mass. Reproductive: Unremarkable as visualized. ABDOMEN and PELVIS: Intraperitoneal space: Unremarkable. No free air. No significant fluid collection. Bones/joints: No acute fracture. No dislocation. Soft tissues: Unremarkable. Vasculature: Unremarkable. No abdominal aortic aneurysm. Lymph nodes: Unremarkable. No enlarged lymph nodes. IMPRESSION: 1. No acute disease. 2. 1.5 cm nonspecific low-attenuation lesion in the medial inferior spleen, of doubtful clinical significance. 3. There are some small renal cysts. 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 Subcentimeter focus of increased attenuation upper pole right kidney, too small to characterize. 4. Hepatic steatosis. 5. Small nonobstructing renal stones. 6. Colonic diverticulosis.
[2023-07-14 09:02] VITALS: BP 126/80
== END 2023-07-14 09:01 | disposition home or self-care (01) ==
LOC: EC 02:54
DX: R10.13 Epigastric pain (principal); R30.0 Dysuria; I10 Essential (primary) hypertension; E78.5 Hyperlipidemia, unspecified; E07.9 Disorder of thyroid, unspecified; Z79.890 Hormone replacement therapy; Z79.899 Other long term (current) drug therapy; Z87.891 Personal history of nicotine dependence
CPT/HCPCS: 36415; 93005; 80053; 83690; 83735; 84484; 85025; 85610; 85730; 81001; 71046; 74177; 99285; Q9967

== ENCOUNTER → 2024-06-08 | Outpatient (CLI) | payer MEDICARE, OTHER ==
--- NOTE | 2024-06-08 08:27 | US ---
EXAMINATION TYPE: US kidneys/renal and bladder DATE OF EXAM: 06/08/2024 COMPARISON: CT 07/14/2023 CLINICAL INDICATION: Female, 79 years old with history of Z87.442 PERSONAL HX OF KIDNEY STONES; Left flank pain last day, with microscopic hematuria. TECHNIQUE: Grayscale and color Doppler imaging of the bilateral kidneys and urinary bladder: FINDINGS: EXAM MEASUREMENTS: Right Kidney: 10.4 x 5.7 x 4.3 cm Left Kidney: 11.6 x 5.9 x 5.2 cm Post Void Residual Volume: NA mL Right Kidney: Echogenic circumscribed vascular area without shadowing seen in the upper medial pole, most consistent with angiomyolipoma seen on CT = 2.0 x 1.3 x 1.2 cm . No hydronephrosis. Left Kidney: Echogenic foci with minimal shadowing and twinkle artifact - lower pole image 79, upper pole image 81 -consistent with renal calcification. No hydronephrosis. Bladder: WNL Bilateral Jets seen: Yes Normal Post Void Residual: NA No hydronephrosis of either kidney. Echogenic lesion within the upper medial pole of the right kidney consistent with an Alfredo biloma seen on prior CT. Punctate nonobstructive left renal calculus demons trating shadowing and twinkle artifact. Cortical medullary differentiation is maintained bilaterally. The urinary bladder is anechoic with both ureteral jets identified. IMPRESSION: 1. No hydronephrosis. 2. Nonobstructive left renal calculus. 3. Right renal echogenic lesion most consistent with an angiomyolipoma demonstrated on prior CT. [facility], , 06/08/2024 8:25 AM
== END | disposition home or self-care (01) ==
LOC: RADUSWWP 07:55
PROVIDERS: ATTEND Internal Medicine Geriatric Medicine
CPT/HCPCS: 76770

== ENCOUNTER → 2024-06-26 | Outpatient (CLI) | payer MEDICARE, OTHER ==
--- NOTE | 2024-06-29 08:40 | MM ---
Reason for Exam: Screening (asymptomatic). Last mammogram was performed 1 year(s) and 1 month(s) ago. Patient History: Menarche at age 13. First Full-Term at age 24. Hysterectomy at age 41. Postmenopausal. Risk Values: Lisa 5 year model risk: 1.5%. NCI Lifetime model risk: 2.8%. Prior Study Comparison: 06/14/2021 Bilateral Screening Mammogram, [facility]. 06/15/2022 Bilateral MG 3D screening mammo w/cad, [facility]. 06/18/2023 Bilateral MG 3D screening mammo w/cad, [facility]. Tissue Density: There are scattered areas of fibroglandular density. Findings: Analyzed By CAD. Right breast: There is no suspicious group of microcalcifications or new suspicious mass. Left breast: There is no suspicious group of microcalcifications or new suspicious mass. Overall Assessment: Negative, BI-RAD 1 Management: Screening Mammogram of both breasts in [address] [facility] will attempt to contact patient to return for supplemental views and ultrasound if indicated. Patient should continue monthly self-breast exams. A clinical breast exam by your physician is recommended on an annual basis. This exam should not preclude additional follow-up of suspicious palpable abnormalities. Note on Lisa scores and lifetime risk: 1. A Lisa score greater than 3% is considered moderate risk. If this is the case, consider specialist referral to assess eligibility for a risk reducing agent. 2. If overall lifetime risk for the development of breast cancer is 20% or higher, the patient may qualify for future screening with alternating mammogram and breast MRI. [facility], , 06/29/2024 8:38 AM. Electronically signed and approved by: Jamli Naik DO
== END | disposition home or self-care (01) ==
LOC: RADMAMWWP 10:25
PROVIDERS: ATTEND Internal Medicine Geriatric Medicine
DX: Z12.31 Encounter for screening mammogram for malignant neoplasm of breast (principal); R92.323 Mammographic fibroglandular density, bilateral breasts; Z78.0 Asymptomatic menopausal state
CPT/HCPCS: 77063; 77067

== ENCOUNTER → 2025-02-16 | Outpatient (CLI) | payer MEDICARE, OTHER ==
--- NOTE | 2025-02-16 16:40 | US ---
EXAMINATION TYPE: US transvaginal DATE OF EXAM: 02/16/2025 COMPARISON: NONE CLINICAL INDICATION: Female, 79 years old with history of R102 PELVIC PAIN; Pain and bloating. Partia l hysterectomy TECHNIQUE: Transvaginal (TV). Doppler imaging: Not performed. FINDINGS: EXAM MEASUREMENTS: Uterus: Surgically absent Endometrial Stripe: Surgically absent Left Ovary: 1.4 x 2.0 x 1.0 cm 1. Uterus: Surgically absent 2. Endometrium: Surgically absent 3. Right Ovary: Obscured by overlying bowel gas 4. Left Ovary: wnl 5. Bilateral Adnexa: wnl 6. Posterior cul-de-sac: wnl IMPRESSION: as above O-RADS 2021 [email or web address] [facility], , 02/16/2025 4:38 PM
--- NOTE | 2025-02-16 20:20 | US ---
EXAMINATION TYPE: US kidneys/renal and bladder DATE OF EXAM: 02/16/2025 COMPARISON: NONE CLINICAL INDICATION: Female, 79 years old with history of N20.0 KIDNEY STONE; Pain, bloating hx of st one TECHNIQUE: Grayscale imaging of the bilateral kidneys and urinary bladder: FINDINGS: EXAM MEASUREMENTS: Right Kidney: 8.7 x 4.7 x 4.4 cm Left Kidney: 9.5 x 5.2 x 4.8 cm Right Kidney: No hydronephrosis or masses seen Left Kidney: Lobulated no hydronephrosis seen. Bladder: Anechoic Bilateral Jets seen: yes There is no evidence for hydronephrosis at this point in time. No nephrolithiasis is seen. No heather s are identified. The urinary bladder is anechoic. IMPRESSION: No discrete abnormality appreciated. [facility], , 02/16/2025 8:18 PM
== END | disposition home or self-care (01) ==
LOC: RADUSWWP 15:13
PROVIDERS: ATTEND Internal Medicine Geriatric Medicine
DX: N20.0 Calculus of kidney (principal)
CPT/HCPCS: 76770; 76830

== ENCOUNTER → 2025-03-12 | Outpatient (CLI) | payer MEDICARE, OTHER ==
--- NOTE | 2025-03-12 11:52 | CT ---
EXAMINATION TYPE: CT abdomen pelvis w con DATE OF EXAM: 03/12/2025 11:31 AM COMPARISON: 07/14/2023 CLINICAL INDICATION: Female, 79 years old with history of R10.0 ACUTE ABDOMEN, pain TECHNIQUE: Axial images were obtained from above the diaphragm to the pubic rami in the axial plane a t 5 mm thick sections. Reconstructed images are reviewed on the computer in the coronal plane. CONTRAST: 100ml mL of Isovue 300. Study performed with Oral Contrast DLP: 1062 mGycm, Automated exposure control for dose reduction was used. FINDINGS: Limited CT sections are obtained the lung bases. Some streak opacity in the posterior medial right l fabio base may be some atelectasis.. CT ABDOMEN: Liver: There is mild fatty infiltration of the liver. No discrete masses Spleen: Couple small cysts may be within the medial spleen. Pancreas: Normal Adrenal glands: The adrenal glands are normal. Gallbladder: Normal Kidneys: No masses are evident. No hydronephrosis is present. There are a few scattered small calcifi cations within the left kidney without evidence of obstruction. Small cortical renal cysts present. Delayed images were obtained through the kidneys, which remain unremarkable. Aorta: Vascular calcification is within the aorta. Inferior vena cava: Normal. CT PELVIS: Loops of bowel within the abdomen and pelvis are normal. Multiple scattered diverticuli are through t he sigmoid colon. No acute diverticulitis is evident. There are loops of bowel which are incomplet hipolito distended or lack oral contrast limiting their evaluation. Appendix: Normal as visualized. Urinary bladder: Normal. Genitourinary structures: Osseous structures: No suspicious lytic or sclerotic lesions evident. IMPRESSION: 1. Diverticulosis without acute diverticulitis. 2. A few small left renal stones without hydronephrosis. 3. Mild fatty infiltration of liver [facility], , 03/12/2025 11:49 AM
== END | disposition home or self-care (01) ==
LOC: RADCTMAIN 09:35
PROVIDERS: ATTEND Internal Medicine Geriatric Medicine
DX: N20.0 Calculus of kidney (principal); K76.0 Fatty (change of) liver, not elsewhere classified; K57.30 Diverticulosis of large intestine without perforation or abscess without bleeding
CPT/HCPCS: 74177; Q9967